=== PATIENT | female | born 1965 | race Caucasian/White ===

== ENCOUNTER → 2023-07-10 | Outpatient (CLI) | payer BC | END | disposition home or self-care (01) | LOC: RADNMMAIN 09:53 | PROVIDERS: ATTEND Family Medicine | DX: Z53.9 Procedure and treatment not carried out, unspecified reason (principal) ==

== ENCOUNTER → 2023-07-15 | Outpatient (CLI) | payer BC ==
--- NOTE | 2023-07-15 15:04 | CA ---
Lexiscan Nuclear Stress Test Report Name: Daisy Nichols Exam Date: 07/15/2023 11:28 Exam Location: [place] [facility] Ht (in): 62 Wt (lb): 138 BSA: 1.63 Ordering Phys: Azul Mcdermott MD Referring Phys: Lynnette Fuller [facility] Technologist: Mode Paul Age: 57 Gender: F : 1965 Procedure CPT: Indications: I44.7 LEFT BUNDLE-BRANCH BLOCK, UNSPECIFIED ICD-10 Codes: Patient History: Medications: SYNTHROID, ROVASTATIN Meds past 24 hrs: Pretest Chest Pain: STRESS TEST Lexiscan Protocol Exercise Duration (min:sec): 01:[address] Depressions (mm): Angina Score: Camilo Score: Resting HR (bpm): 67 Peak HR (bpm): 119 Resting BP (mmHg): 143 / 82 Peak BP (mmHg): 164 / 95 MPHR: 165 Target HR: 140 % MPHR: 72 METS: 1.0 Total Dose: Peak Dose: Atropine: Double Product: 58335 BP Response: Stress Termination: INFUSION COMPLETE Stress Symptoms: NO SYMPTOMS Stress Summary: ECG ANALYSIS Resting ECG: Stress ECG: CONCLUSIONS At baseline EKG showed normal sinus rhythm and left bundle branch block with no significant ST or T wave abnormalities. Patient recieved IV infusion of Lexiscan 0.4mg and at peak infusion EKG showed no significant change from baseline. Conclusions: 1. Nonspecific stress EKG portion secondary baseline EKG abnormalities 2. Nuclear imaging to be reported separately. Dr. Polo Prado DO (Electronically Signed) Final Date: 15 July 2023 15:03
== END | disposition home or self-care (01) ==
LOC: RADNMMAIN 08:04
PROVIDERS: ATTEND Family Medicine
DX: R94.31 Abnormal electrocardiogram [ECG] [EKG] (principal); I44.7 Left bundle-branch block, unspecified
CPT/HCPCS: 93017; 78452; A9500

== ENCOUNTER 2023-07-23 05:53 | Day surgery (SDC) | payer BC ==
[2023-07-22 12:36] VITALS: BMI 25.9
[~2023-07-23 05:53] MED LIST: ALPRAZolam 0.5 MG TAB PO PRN; ASPIRIN 325 MG TAB PO STA; NITROGLYCERIN SL TABS 0.4 MG TAB SUBLINGUAL PRN; SODIUM CHLORIDE 0.9% 1,000 ML in EMPTY BAG 1 BAG IV SCH
[2023-07-23] MEDS: SODIUM CHLORIDE 0.9% 1,000 ML IV ONE (06:19)
[2023-07-23] MEDS: ALPRAZolam 0.25 MG TAB PO PRN (06:38)
[2023-07-23 06:51] VITALS: RESP 16; TEMP 98.6
[2023-07-23] MEDS ORDERED: HEPARIN SODIUM,PORCINE (1 ML) 2,500 UNIT in SODIUM CHLORIDE 0.9% 250 ML IRRIGATION PRN (07:00)
[2023-07-23] MEDS ORDERED: HEPARIN SODIUM,PORCINE 10,000 UNIT in SODIUM CHLORIDE 0.9% 1,000 ML IRRIGATION PRN (07:00)
[2023-07-23] MEDS: MIDAZOLAM 2 MG/2 ML VIAL IVP ONE (07:33)
[2023-07-23] MEDS: fentaNYL (PF) 50 MCG/ML 2 ML AMP IVP ONE (07:35)
[2023-07-23] MEDS: LIDOCAINE 1% INJ 10MG/ML (20 ML MDV) SQ ONE (07:36)
[2023-07-23] MEDS: VERAPAMIL SYRINGE (5 MG/10 ML) INTRAARTER ONE (07:39)
[2023-07-23] MEDS: HEPARIN SODIUM 1,000 UN/ML (10ML VL) IV ONE (07:43)
[2023-07-23] MEDS ORDERED: SODIUM CHLORIDE 0.9% 1,000 ML IV SCH (08:05)
--- NOTE | 2023-07-23 08:19 | CC ---
CARDIAC CATHETERIZATION REPORT INDICATION: Abnormal stress test in a patient with chest discomfort and left bundle branch block. PROCEDURE NOTE: After obtaining informed consent, left heart catheterization and coronary angiogram were performed via the right radial artery using standard Ruth Ann catheters. The patient tolerated the procedure well without any obvious immediate complications. The patient received moderate conscious sedation. Total sedation time was 19 minutes. Right radial artery access was obtained using Seldinger technique. A 6-[place] sheath was placed. Catheters and wires were floated into the ascending aorta under fluoroscopic guidance. The patient received verapamil and heparin per protocol. A TR band was used for hemostasis at the end of the procedure. FINDINGS: 1. Hemodynamics: Left ventricular end-diastolic pressure is 14 mm. There is no significant gradient across the aortic valve. 2. Left ventriculogram: Left ventriculogram was not performed. 3. Angiographic data: a.Right coronary artery is a small nondominant vessel and is free of stenosis. Left main coronary artery is a normal-sized vessel and is free of disease divides into left anterior descending coronary artery and circumflex coronary artery. LAD and its branches, circumflex, coronary artery and its branches are free of significant stenosis. CONCLUSIONS: 1. Normal coronary arteries. 2. Normal left ventricular end-diastolic pressure. 3. False-positive stress test. PLAN: I reviewed angiographic data with the patient and told her that her management is going to be in the form of risk factor modification and continued optimal medical therapy. In particular, she needs to continue with statins for her dyslipidemia. MMODL / IJN: [id number] /
[2023-07-23] MEDS ORDERED: RX INFO: IV CONTRAST WAS GIVEN 1 EACH MISC MISCELLANE PRN (08:22)
[2023-07-23 10:04] VITALS: PULSE 72
[2023-07-23 15:56] VITALS: BP 129/62
== END 2023-07-23 11:43 | disposition home or self-care (01) ==
LOC: CATHCVL 05:53
PROVIDERS: ATTEND Internal Medicine Cardiovascular Disease
DX: I44.7 Left bundle-branch block, unspecified (principal); E78.5 Hyperlipidemia, unspecified; E07.9 Disorder of thyroid, unspecified; Z87.891 Personal history of nicotine dependence; Z79.890 Hormone replacement therapy; Z79.899 Other long term (current) drug therapy
CPT/HCPCS: 93458; C1769; C1894; J2250; J2001; J3010; J1644